=== PATIENT | female | born 1965 | race Caucasian/White ===

== ENCOUNTER 2018-06-01 15:52 | Observation (INO) ==
--- NOTE | 2018-06-01 16:04 | Emergency Department Note ---
Disposition Clinical Impression: Chest pain Disposition: Admitted As Inpatient Condition: Good Time of Disposition: 17:00 Abdominal Pain HPI - General Chief Complaint: ED Abdominal Pain Stated Complaint: abd pain, n/v Time Seen by Provider: 06/01/18 15:55 Source: patient Mode of arrival: ambulatory Limitations: no limitations Nursing Notes Reviewed: Yes Vital Signs Reviewed: Yes - History of Present Illness HPI Narrative: Patient complains of midsternal chest pain dizziness and nausea and vomiting that started this morning. She told the triage nurse that she was having belly pain it did not mention chest pain until I was interviewing her. She specifically denies belly pain and is complains of nausea with vomiting she denies diarrhea has not had a fever or chills symptoms have been present since this morning Pt Subjective Complaint: abdominal pain Onset (ago): day(s) (1) Consistency: constant Pain Severity: moderate Pain Scale: 7 Quality: aching Radiation: none Migration to: no migration Improves with: nothing Worsens with: nothing Associated symptoms: Reports: nausea, vomiting, other (Dizziness) - Related Data Home Medications Medication Instructions Recorded Confirmed Lisinopril [Zestril] 20 mg PO DAILY 12/30/17 06/01/18 Meloxicam 15 mg PO DAILY 12/30/17 06/01/18 Oxybutynin Chloride [Ditropan Xl] 10 mg PO DAILY 12/30/17 06/01/18 Previous Rx's Medication Instructions Recorded Lansoprazole [Prevacid] 30 mg PO DAILY #30 capsule. 08/23/16 Levothyroxine [Synthroid] 75 mcg PO DAILY #30 tablet 08/23/16 Allergies Allergy/AdvReac Type Severity Reaction Status Date / Time No Known Allergies Allergy Verified 08/10/15 01:01 All systems ED: reviewed and negative except as stated. Review of Systems: As Per HPI Constitutional: Denies: fever, chills, weakness, weight change Eyes: Denies: eye pain, eye discharge, vision change ENT ED: Denies: ear pain, throat pain, dental pain, hearing loss, epistaxis, congestion, dysphagia Cardiovascular: Reports: as per HPI, chest pain Respiratory: Denies: cough, dyspnea, wheezes, hemoptysis, stridor Gastrointestinal: Reports: as per HPI, nausea, vomiting Genitourinary: Denies: dysuria, frequency, hematuria, discharge Musculoskeletal: Denies: back pain, neck pain, arthralgia, myalgia Integumentary: Denies: rash, abrasion, lesions Neurological: Denies: headache, weakness, numbness, paresthesias, confusion, abnormal gait, vertigo Psychiatric: Denies: anxiety, depression, suicidal thoughts, homicidal thoughts, auditory hallucinations, visual hallucinations Endocrine: Denies: fatigue Hematological/Lymphatic: Denies: easy bleeding, easy bruising Allergic/Immunologic: Denies: facial swelling, urticaria Abdominal Pain PMH - Past Medical History Medical history: Reports: atrial fibrillation, fibromyalgia, GERD, hypertension, thyroid disease, other Female Surgical History: Reports: cholecystectomy, 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: bilateral tubal 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 Psychiatric history: Reports: depression - Social History Smoking status: Never smoker Alcohol use: Reports: none Drug use: Reports: none Physical Exam - General Limitations: no limitations General appearance: alert - Head Head exam: atraumatic, normocephalic, normal inspection - Eye Eye exam: Present: normal appearance, PERRL, EOMI - ENT ENT exam: normal exam, normal oropharynx, mucous membranes moist - Neck Neck exam: Present: normal inspection, full ROM, trachea midline - Chest Chest inspection: Present: normal inspection, symmetric chest wall rise - Respiratory Respiratory exam: Present: normal lung sounds bilaterally - Cardiovascular Cardiovascular exam: Present: regular rate, normal rhythm, normal heart sounds - Abdominal Exam Abdominal exam: Present: soft, Non-Tender, normal bowel sounds, other (Morbidly obese) - Extremities Exam Extremities exam: Present: normal inspection, full ROM. Absent: tenderness, pedal edema - Back Exam Back exam: Present: normal inspection - Neurological Exam Neurological exam: Present: alert, oriented X3 - Psychiatric Psychiatric exam: Present: normal affect, normal mood - Skin Skin exam: Present: warm, dry, intact Course Vital Signs Temperature 98 F 06/01/18 15:53 Pulse Rate 86 06/01/18 15:53 Respiratory Rate 18 06/01/18 15:53 Blood Pressure 157/93 06/01/18 15:53 O2 Sat by Pulse Oximetry 98 06/01/18 15:53 Temperature 98 F 06/01/18 15:53 Pulse Rate 79 06/01/18 19:22 Respiratory Rate 16 06/01/18 19:22 Blood Pressure 122/68 06/01/18 19:22 O2 Sat by Pulse Oximetry 98 06/01/18 19:22 Oxygen Delivery Oxygen Delivery Room Air Abdominal Pain - MDM Narrative Medical decision making narrative: I reviewed the patient's medication list Case was discussed with Dr. Enamorado who is graciously accepted admission - Lab Data Lab results reviewed: Yes I reviewed the patient's lab results. Result diagrams: 06/01/18 16:27 06/01/18 16:27 Lab Results 06/01/18 06/01/18 06/01/18 Range/Units 16:13 16:27 16:27 WBC 4.6 (4.3-11.1) K/mcL RBC 4.85 (3.82-4.97) M/mcL Hgb 15.1 (11.5-15.4) g/dL Hct 45.0 H (35.3-44.9) % MCV 92.8 (83.0-100.0) fL MCH 31.1 (28.0-33.3) pg MCHC 33.6 (31.6-35.5) g/dL RDW 13.3 (11.5-14.5) % Plt Count 172 (140-400) K/mcL MPV 10.7 (9.4-12.4) fL Immature Gran % 0.2 (0-4) % Seg Neutrophils % 48.8 % Lymphocytes % 39.9 % Monocytes % 7.4 % Eosinophils % 2.8 % Basophils % 0.9 % Neutrophils # 2.2 (1.6-8.9) K/mcL Lymphocytes # 1.8 (0.6-4.6) K/mcL Monocytes # 0.3 (0.0-1.3) K/mcL Eosinophils # 0.1 (0.0-0.6) K/mcL Basophils # 0.0 (0.0-0.2) K/mcL PT 12.3 H (9.4-12.1) Seconds INR 1.1 APTT 31.1 (26.0-36.0) Seconds Sodium (136-145) mEq/L Potassium (3.5-5.1) mEq/L Chloride (98-107) mEq/L Carbon Dioxide (23-29) mEq/L BUN (6-20) mg/dL Creatinine (0.60-1.20) mg/dL Est GFR ( Amer) (> 60) Est GFR (Non-Af Amer) (> 60) BUN/Creatinine Ratio (6-26) Glucose (70-105) mg/dL Calculated Osmolality (280-300) Calcium (8.6-10.3) mg/dL Total Bilirubin (0.3-1.0) mg/dL AST (13-39) Units/L ALT (7-52) Units/L Alkaline Phosphatase (34-104) Units/L Troponin I (< 0.04) ng/mL Serum Total Protein (6.4-8.9) g/dL Albumin (3.5-5.7) g/dL Globulin (2.4-3.5) g/dL Albumin/Globulin Ratio (1.1-2.2) Urine Color Yellow (Yellow) Urine Clarity Slightly Cloudy A (Clear) Urine pH 7.0 (5.0-8.0) pH Units Ur Specific [place] 1.025 (1.010-1.025) Urine Protein Negative (Neg-Trace) mg/dL Urine Glucose (UA) Normal (Normal) mg/dL Urine Ketones Negative (Negative) mg/dL Urine Blood Negative (Negative) Urine Nitrite Negative (Negative) Urine Bilirubin Negative (Negative) Urine Urobilinogen Normal (Normal) mg/dL Ur Leukocyte Esterase Negative (Negative) Urine Microscopic RBC 0-3 (0-3) per hpf Urine Microscopic WBC 3-5 H (0-3) per hpf Ur Squamous Epith Cells Many H (None-Few) per lpf Amorphous Sediment Few (Few) Urine Bacteria Many H (None-Few) per hpf Granular Casts Few H (None Seen) per lpf Ur Culture Indicated? NO (NO) 06/01/18 06/01/18 Range/Units 16:27 17:49 WBC (4.3-11.1) K/mcL RBC (3.82-4.97) M/mcL Hgb (11.5-15.4) g/dL Hct (35.3-44.9) % MCV (83.0-100.0) fL MCH (28.0-33.3) pg MCHC (31.6-35.5) g/dL RDW (11.5-14.5) % Plt Count (140-400) K/mcL MPV (9.4-12.4) fL Immature Gran % (0-4) % Seg Neutrophils % % Lymphocytes % % Monocytes % % Eosinophils % % Basophils % % Neutrophils # (1.6-8.9) K/mcL Lymphocytes # (0.6-4.6) K/mcL Monocytes # (0.0-1.3) K/mcL Eosinophils # (0.0-0.6) K/mcL Basophils # (0.0-0.2) K/mcL PT (9.4-12.1) Seconds INR APTT (26.0-36.0) Seconds Sodium 138 (136-145) mEq/L Potassium 4.1 (3.5-5.1) mEq/L Chloride 104 (98-107) mEq/L Carbon Dioxide 27 (23-29) mEq/L BUN 13 (6-20) mg/dL Creatinine 0.72 (0.60-1.20) mg/dL Est GFR ( Amer) > 60 (> 60) Est GFR (Non-Af Amer) > 60 (> 60) BUN/Creatinine Ratio 18 (6-26) Glucose 129 H (70-105) mg/dL Calculated Osmolality 288 (280-300) Calcium 9.2 (8.6-10.3) mg/dL Total Bilirubin 1.3 H (0.3-1.0) mg/dL AST 20 (13-39) Units/L ALT 23 (7-52) Units/L Alkaline Phosphatase 58 (34-104) Units/L Troponin I < 0.03 < 0.03 (< 0.04) ng/mL Serum Total Protein 7.0 (6.4-8.9) g/dL Albumin 3.9 (3.5-5.7) g/dL Globulin 3.1 (2.4-3.5) g/dL Albumin/Globulin Ratio 1.3 (1.1-2.2) Urine Color (Yellow) Urine Clarity (Clear) Urine pH (5.0-8.0) pH Units Ur Specific [place] (1.010-1.025) Urine Protein (Neg-Trace) mg/dL Urine Glucose (UA) (Normal) mg/dL Urine Ketones (Negative) mg/dL Urine Blood (Negative) Urine Nitrite (Negative) Urine Bilirubin (Negative) Urine Urobilinogen (Normal) mg/dL Ur Leukocyte Esterase (Negative) Urine Microscopic RBC (0-3) per hpf Urine Microscopic WBC (0-3) per hpf Ur Squamous Epith Cells (None-Few) per lpf Amorphous Sediment (Few) Urine Bacteria (None-Few) per hpf Granular Casts (None Seen) per lpf Ur Culture Indicated? (NO) - Radiology Data Radiology results reviewed: Yes I reviewed the patient's radiology results. - EKG Data EKG attestation: Yes I reviewed and interpreted this EKG. EKG results narrative: EKG shows a sinus rhythm with a solitary PVC. Rate is 80 bpm. IA interval 166 ms rastafarian 102 ms QT interval 396 QTC 407 ms R axis of -[address] elevation. Some anterolateral T changes.
[2018-06-01] MEDS ORDERED: Aspirin 81 MG TAB.CHEW PO STA (16:09)
[2018-06-01] MEDS ORDERED: Ondansetron 4 MG/2 ML VIAL IVP ONE (16:09)
[2018-06-01] MEDS ORDERED: Nitroglycerin 0.4 MG TAB.SUBL SL PRN ×2 (16:09→19:57)
[2018-06-01] MEDS ORDERED: 0.9 % Sodium Chloride 1,000 ML IVC SCH (16:15)
[2018-06-01 16:20] LABS: Bilirubin,Urine Negative (Negative); Blood,Urine Negative (Negative); Clarity,Urine Slightly Cloudy (Clear); Color,Urine Yellow (Yellow); Glucose,Urine (UA) Normal (Normal); Ketones,Urine Negative (Negative); Leukocyte Esterase,Urine Negative (Negative); Nitrite,Urine Negative (Negative); Protein,Urine Negative (Neg-Trace); Specific Gravity,Urine 1.025 (1.010-1.025); Urobilinogen,Urine Normal (Normal)
[2018-06-01] MEDS ORDERED: Nitroglycerin 0.4 MG TAB.SUBL SL ONE (16:21)
[2018-06-01] MEDS ORDERED: 0.9 % Sodium Chloride 1,000 ML ONE (16:21)
[2018-06-01 16:31] LABS: Basophils % 0.9 %; Eosinophils # 0.1 K/mcL (0.0-0.6); Eosinophils % 2.8 %; Hemoglobin 15.1 g/dL (11.5-15.4); Immature Granulocytes % 0.2 % (0-4); Lymphocytes # 1.8 K/mcL (0.6-4.6); Lymphocytes % 39.9 %; Mean Corpuscular HGB Conc 33.6 g/dL (31.6-35.5); Mean Corpuscular Hemoglobin 31.1 pg (28.0-33.3); Mean Corpuscular Volume 92.8 fL (83.0-100.0); Mean Platelet Volume 10.7 fL (9.4-12.4); Monocytes # 0.3 K/mcL (0.0-1.3); Monocytes % 7.4 %; Neutrophils # 2.2 K/mcL (1.6-8.9); Platelet Count 172 K/mcL (140-400); Red Blood Count 4.85 M/mcL (3.82-4.97); Red Cell Distribution Width 13.3 % (11.5-14.5); Segmented Neutrophils % 48.8 %
[2018-06-01 16:32] LABS: Amorphous Sediment,Urine Few (Few); Bacteria,Urine Many per hpf (None-Few); Granular Casts,Urine Few per lpf (None Seen); RBC,Urine 0-3 per hpf (0-3); Squamous Epithelial Cell,Urine Many per lpf (None-Few)
[2018-06-01 16:39] LABS: INR 1.1; Prothrombin Time 12.3 Seconds (9.4-12.1)
[2018-06-01 16:41] LABS: Activated Partial Thrombo Time 31.1 Seconds (26.0-36.0)
[2018-06-01 16:50] LABS: Alanine Aminotransferase 23 Units/L (7-52); Albumin 3.9 g/dL (3.5-5.7); Albumin/Globulin Ratio 1.3 (1.1-2.2); Alkaline Phosphatase 58 Units/L (34-104); Aspartate Amino Transferase 20 Units/L (13-39); BUN/Creatinine Ratio 18 (6-26); Bilirubin,Total 1.3 mg/dL (0.3-1.0); Blood Urea Nitrogen 13 mg/dL (6-20); Calcium 9.2 mg/dL (8.6-10.3); Carbon Dioxide 27 mEq/L (23-29); Chloride 104 mEq/L (98-107); Globulin 3.1 g/dL (2.4-3.5); Glucose 129 mg/dL (70-105); Osmolality,Calculated 288 (280-300); Potassium 4.1 mEq/L (3.5-5.1); Sodium 138 mEq/L (136-145); Troponin I < 0.03 ng/mL (< 0.04); eGFR For Non-African Americans > 60 (> 60)
[2018-06-01] MEDS ORDERED: Naloxone 0.4 MG/ML INJ IVP PRN (19:57)
[2018-06-01] MEDS: 0.9 % Sodium Chloride 1,000 ML IVC SCH (21:12)
[2018-06-01] MEDS: Acetaminophen 325 MG TABLET PO PRN (23:53)
[2018-06-02] MEDS: Ondansetron 4 MG/2 ML VIAL IVP PRN ×2 (01:25→09:54)
[2018-06-02] MEDS: 0.9 % Sodium Chloride 1,000 ML IVC SCH (05:32)
[2018-06-02 06:20] LABS: Basophils # 0.1 K/mcL (0.0-0.2); Eosinophils # 0.2 K/mcL (0.0-0.6); Eosinophils % 3.7 %; Hematocrit 41.2 % (35.3-44.9); Hemoglobin 13.7 g/dL (11.5-15.4); Immature Granulocytes % 0.2 % (0-4); Lymphocytes # 2.2 K/mcL (0.6-4.6); Lymphocytes % 45.1 %; Mean Corpuscular HGB Conc 33.3 g/dL (31.6-35.5); Mean Corpuscular Hemoglobin 30.9 pg (28.0-33.3); Mean Platelet Volume 11.4 fL (9.4-12.4); Monocytes # 0.5 K/mcL (0.0-1.3); Monocytes % 9.3 %; Platelet Count 168 K/mcL (140-400); Red Blood Count 4.43 M/mcL (3.82-4.97); Red Cell Distribution Width 13.5 % (11.5-14.5); Segmented Neutrophils % 40.7 %
[2018-06-02 06:40] LABS: Troponin I < 0.03 ng/mL (< 0.04)
[2018-06-02 06:43] LABS: BUN/Creatinine Ratio 21 (6-26); Blood Urea Nitrogen 14 mg/dL (6-20); Calcium 8.5 mg/dL (8.6-10.3); Carbon Dioxide 26 mEq/L (23-29); Chloride 103 mEq/L (98-107); Glucose 114 mg/dL (70-105); Osmolality,Calculated 279 (280-300); Potassium 3.5 mEq/L (3.5-5.1); Sodium 134 mEq/L (136-145); eGFR For Non-African Americans > 60 (> 60)
[2018-06-02 07:17] VITALS: BP 106/62
[2018-06-02] MEDS ORDERED: Lisinopril 20 MG TABLET PO SCH (09:00)
[2018-06-02] MEDS: Acetaminophen 325 MG TABLET PO PRN (10:03)
--- NOTE | 2018-06-02 12:00 | Internal Med History&Physical ---
Date of Encounter: 06/02/18 Time of Encounter: 11:30 Assessment and Plan (1) Chest pain Current visit: Yes Status: Acute Doubt myocardial ischemic origin from history and physical. Suspect chest wall origin. Repeat cardiac enzymes were ordered through emergency room. Qualifiers: Chest pain type: precordial pain Qualified Code(s): R07.2 - Precordial pain (2) Vomiting Current visit: Yes Status: Acute Now resolved. Qualifiers: Vomiting type: unspecified Vomiting Intractability: non-intractable Nausea presence: unspecified Qualified Code(s): R11.10 - Vomiting, unspecified (3) Hypertension Current visit: Yes Status: Chronic Continue lisinopril. Qualifiers: Hypertension type: essential hypertension Qualified Code(s): I10 - Essential (primary) hypertension Internal Medicine - H&P: HPI Chief complaint: Vomiting, chest discomfort Admitted From: Emergency Dept Plans for Post Hospital Care: Home History of present illness: Ms. Wilson is a 52 year old female who came to emergency room stating she awakened the morning of admission with a nonradiating burning/heavy sensation in her mid chest area. She had 3 episodes of vomiting at home without hematemesis. She had a burning sensation in her abdominal area and reports vertigo. She denies diarrhea fevers or chills or significant cough or dyspnea. When she did not improve after several hours she came to emergency room for evaluation. She was admitted to [facility] floor for ongoing care needs. She states her symptoms have resolved and she feels back to her baseline now and wishes to be discharged home. She denies URI symptoms other than having some left ear drainage onset 3 days ago. Past Med Surg Social Fam HX - Past Medical History Medical history: atrial fibrillation, fibromyalgia, GERD, hypertension, thyroid disease, other Additional medical history: TMJ. neuropathy Psychiatric history: depression - Past Surgical History Surgical History: cholecystectomy Additional surgical history: tubal ligation. exploratory lap - Social History Smoking Status: Never smoker Smokeless Tobacco Status: No Alcohol use: none Drug use: none Internal Medicine - H&P: Meds Lansoprazole [Prevacid] 30 mg PO DAILY #30 capsule. 08/23/16 [Rx] Levothyroxine [Synthroid] 75 mcg PO DAILY #30 tablet 08/23/16 [Rx] Lisinopril [Zestril] 20 mg PO DAILY 12/30/17 [History] Meloxicam 15 mg PO DAILY 12/30/17 [History] Oxybutynin Chloride [Ditropan Xl] 10 mg PO DAILY 12/30/17 [History] Allergy/AdvReac Type Severity Reaction Status Date / Time No Known Allergies Allergy Verified 08/10/15 01:01 All Systems PM: A 10-system review of systems was performed and is negative for pertinent findings except as documented above in the HPI. Review of systems: Gen.: She states her weight has increased approximately 25 pounds in the past year Cardiovascular: She has history of hypertension. She denies PA heart failure angina DVT or pulmonary embolus.. Echocardiogram 01/18/2015 showed LVEF 55%. There was mild LV diastolic dysfunction reported with E/A ratio 0.8. There was mild aortic regurgitation. She reports she has had an "arrhythmia" which she thinks was atrial fibrillation. She does not report taking OAC. The arrhythmia resolved without further intervention. She has predictable dyspnea on exertion. Respiratory: She is a lifelong nonsmoker and denies chronic lung disease. She r eports she was diagnosed with ISABEL approximately August 2014 by sleep study but did not return for CPAP titration. GI: She has had cholecystectomy. She has GERD. She denies disorders of her liver or exocrine pancreas. : She has history of kidney stones and overactive bladder. She denies other kidney disorders. Neurologic: She denies large distribution strokes or seizures. Endocrine: She has hypothyroidism. She denies diabetes or hyperlipidemia. Hematology/oncology: She denies blood disorders cancers or anemia Psychiatric: She was diagnosed with depression at her last PCP visit. She was prescribed antidepressant medication but states she discontinued it after the first dose because of unpleasant side effect. She denies other mental health diagnosis. [place] skeletal: She has diagnosis of DJD and fibromyalgia. She denies gout or other bone joint or muscle disorders. - Constitutional Vitals: Temp Pulse Resp BP Pulse Ox 98.1 F 81 16 106/62 92 06/02/18 07:13 06/02/18 07:13 06/02/18 07:13 06/02/18 07:13 06/02/18 07:13 Exam: Gen.: She is well-developed WBC female lying in bed who appears in no acute distress at present time HEENT: Head is atraumatic and normocephalic. Eyes: EOMI. There is no scleral icterus. Mouth: Mucosa is moist. Neck: Supple and nontender. There is no thyromegaly or adenopathy noted. Heart: Regular without murmurs gallops or ectopics Chest: She has slight tenderness in her mid sternal area to compression stating "that is the pain". Abdomen: She has a large abdomen. It is nontender to palpation. Extremities: There is no cyanosis edema or clubbing noted. Dorsalis pedis and posterior tibial pulses are trace to 1+ palpable bilaterally. Neurologic: Mental status: She is talkative and a good historian. Cranial nerves: Smile is symmetric. Forehead wrinkles bilaterally. Tongue protrudes midline. EOMI. Motor: There is no pronator drift. Cerebellar: Finger to nose is intact bilaterally. Skin: Warm and dry Internal Med - H&P Results - Labs CBC & Chem 7: 06/02/18 05:30 06/02/18 05:30 Labs: Short CBC 06/01/18 06/02/18 Range/Units 16:27 05:30 WBC 4.6 4.9 (4.3-11.1) K/mcL Hgb 15.1 13.7 (11.5-15.4) g/dL Hct 45.0 H 41.2 (35.3-44.9) % Plt Count 172 168 (140-400) K/mcL Neutrophils # 2.2 2.0 (1.6-8.9) K/mcL BMP 06/01/18 06/02/18 16:27 05:30 Sodium 138 134 L Potassium 4.1 3.5 Chloride 104 103 Carbon Dioxide 27 26 BUN 13 14 Creatinine 0.72 0.67 Glucose 129 H 114 H Calcium 9.2 8.5 L Cardiac Enzymes 06/01/18 06/01/18 06/01/18 Range/Units 16:27 17:49 22:00 Troponin I < 0.03 < 0.03 < 0.03 (< 0.04) ng/mL 06/02/18 Range/Units 05:30 Troponin I < 0.03 (< 0.04) ng/mL Liver Function 06/01/18 Range/Units 16:27 Total Bilirubin 1.3 H (0.3-1.0) mg/dL AST 20 (13-39) Units/L ALT 23 (7-52) Units/L Alkaline Phosphatase 58 (34-104) Units/L Albumin 3.9 (3.5-5.7) g/dL Urine 06/01/18 Range/Units 16:13 Urine Color Yellow (Yellow) Urine Clarity Slightly Cloudy A (Clear) Urine pH 7.0 (5.0-8.0) pH Units Ur Specific [place] 1.025 (1.010-1.025) Urine Protein Negative (Neg-Trace) mg/dL Urine Glucose (UA) Normal (Normal) mg/dL - Impressions ITS Impressions Chest X-Ray 06/01/18 16:07 IMPRESSION: Cardiomegaly. No radiographic evidence of acute pulmonary disease. Low lung volumes. D/ / Alden Avila / Alden Avila Interpreting Provider: Alden Avila
--- NOTE | 2018-06-02 12:13 | Discharge Summary ---
Orders not resulted at time of discharge: Pending orders 06/01/18 16:07 EKG [ECG 12 lead ECG] [ECG] Stat 06/02/18 06:00 ECG 12 lead ECG [ECG] AM 0600 06/02/18 10:00 Troponin I Q6H Date of Encounter: 06/02/18 Time of Encounter: 11:30 - Discharge Diagnosis (1) Chest pain Priority: Primary Status: Acute Qualifiers: Chest pain type: precordial pain Qualified Code(s): R07.2 - Precordial pain (2) Vomiting Priority: Secondary Status: Resolved Qualifiers: Vomiting type: unspecified Vomiting Intractability: non-intractable Nausea presence: unspecified Qualified Code(s): R11.10 - Vomiting, unspecified (3) Hypertension Priority: Secondary Status: Chronic Qualifiers: Hypertension type: essential hypertension Qualified Code(s): I10 - Essential (primary) hypertension Hospital course: Ms. Wilson is a 52 year old female who came to emergency room stating she awakened the morning of admission with a nonradiating burning/heavy sensation in her mid chest area. She had 3 episodes of vomiting at home without hematemesis. She had a burning sensation in her abdominal area and reports vertigo. She denies diarrhea fevers or chills or significant cough or dyspnea. When she did not improve after several hours she came to emergency room for evaluation. She was admitted to [facility] for ongoing care needs. Initial orders were written by the emergency room physician. I saw her on June 02 and performed a history physical and discharge. By the time I saw her she reported she was asymptomatic. She felt back to her baseline and wished to be discharged home which I felt was reasonable. Repeat cardiac enzymes show ed no evidence of myocardial damage. I suspect her chest pain was likely chest wall origin. She will follow with her PCP Felicia Lopez CNP within 1 week. - Time Spent with Patient Total time spent providing and/or coordinating discharge services: - Discharge Medications Home Medications: Lansoprazole [Prevacid] 30 mg PO DAILY #30 capsule. 08/23/16 [Rx] Levothyroxine [Synthroid] 75 mcg PO DAILY #30 tablet 08/23/16 [Rx] Lisinopril [Zestril] 20 mg PO DAILY 12/30/17 [History] Meloxicam 15 mg PO DAILY 12/30/17 [History] Oxybutynin Chloride [Ditropan Xl] 10 mg PO DAILY 12/30/17 [History] Allergies/Adverse Reactions: Allergy/AdvReac Type Severity Reaction Status Date / Time No Known Allergies Allergy Verified 08/10/15 01:01 Date of admission: 06/01/18 18:39 Primary care physician: Felicia Lopez - Constitutional Vitals: Temp Pulse Resp BP Pulse Ox 98.1 F 81 16 106/62 92 06/02/18 07:13 06/02/18 07:13 06/02/18 07:13 06/02/18 07:13 06/02/18 07:13 - Patient Status Disposition: Home, Self-Care Condition: Good - Discharge Instructions Follow Up With: Felicia Lopez, OUTREACH CLINICIAN [Primary Care Provider] - 1 week - Diet and Activity Activity: resume usual activities as tolerated Diet: advance to your usual diet
--- NOTE | 2018-06-04 15:11 | Electrocardiograph Report ---
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
--- NOTE | 2018-06-05 14:23 | Electrocardiograph Report ---
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
== END 2018-06-02 15:24 | disposition home or self-care (01) ==
LOC: INPPIK 15:52 → EMEROOPIK 15:52 → INPPIK 19:45
PROVIDERS: ADMIT Internal Medicine; ATTEND Internal Medicine

== ENCOUNTER 2020-04-20 22:44 | Inpatient (IN) ==
[2020-04-20] MEDS ORDERED: Ipratropium/Albuterol Neb 3 ML IH ONE (23:17)
[2020-04-20] MEDS ORDERED: Ondansetron 4 MG/2 ML VIAL IVP ONE (23:17)
[2020-04-20] MEDS ORDERED: 0.9 % Sodium Chloride 1,000 ML IVC ONE (23:17)
[2020-04-20 23:52] LABS: Basophils % 0.4 %; Hematocrit 42.1 % (35.3-44.9); Hemoglobin 14.1 g/dL (11.5-15.4); Lymphocytes % 39.4 %; Mean Corpuscular HGB Conc 33.5 g/dL (31.6-35.5); Mean Corpuscular Hemoglobin 31.1 pg (28.0-33.3); Mean Corpuscular Volume 92.7 fL (83.0-100.0); Mean Platelet Volume 10.8 fL (9.4-12.4); Monocytes # 0.3 K/mcL (0.0-1.3); Monocytes % 11.8 %; Neutrophils # 1.2 K/mcL (1.6-8.9); Platelet Count 133 K/mcL (140-400); Red Blood Count 4.54 M/mcL (3.82-4.97); Red Cell Distribution Width 13.3 % (11.5-14.5); Segmented Neutrophils % 48.4 %; White Blood Count 2.5 K/mcL (4.3-11.1)
[2020-04-21 00:39] LABS: ABG Base Excess 3 mEq/L (-2 to 3); ABG HCO3 28 mEq/L (21-27); ABG Oxygen Saturation 86 % (95-98); ABG PCO2 47 mmHg (35-45); ABG PH 7.39 pH Units (7.32-7.45); ABG PO2 52 mmHg (85-104); ABG TCO2 30 mEq/L (20-26)
[2020-04-21 00:50] LABS: BUN/Creatinine Ratio 11 (6-26); Blood Urea Nitrogen 8 mg/dL (6-20); Calcium 8.4 mg/dL (8.6-10.3); Carbon Dioxide 30 mEq/L (23-29); Chloride 99 mEq/L (98-107); Glucose 116 mg/dL (70-105); Osmolality,Calculated 283 (280-300); Potassium 3.6 mEq/L (3.5-5.1); Sodium 137 mEq/L (136-145); eGFR For African Americans > 60 (> 60); eGFR For Non-African Americans > 60 (> 60)
[2020-04-21 00:51] LABS: Troponin I < 0.03 ng/mL (< 0.04)
[2020-04-21] MEDS ORDERED: Azithromycin 500 MG in 0.9 % Sodium Chloride 250 ML IVPB ONE (01:31)
[2020-04-21] MEDS ORDERED: Dexamethasone 4 MG/ML VIAL IVP ONE (01:31)
[2020-04-21] MEDS ORDERED: Naloxone 0.4 MG/ML INJ IVP PRN (03:32)
[2020-04-21] MEDS ORDERED: Ondansetron 4 MG/2 ML VIAL IVP PRN (03:32)
[2020-04-21] MEDS ORDERED: 0.9 % Sodium Chloride 1,000 ML IVC SCH (03:32)
[2020-04-21 09:46] LABS: Alanine Aminotransferase 27 Units/L (7-52); Albumin 3.7 g/dL (3.5-5.7); Albumin/Globulin Ratio 1.1 (1.1-2.2); Alkaline Phosphatase 53 Units/L (34-104); Aspartate Amino Transferase 31 Units/L (13-39); BUN/Creatinine Ratio 9 (6-26); Bilirubin,Total 0.5 mg/dL (0.3-1.0); Blood Urea Nitrogen 7 mg/dL (6-20); Calcium 8.1 mg/dL (8.6-10.3); Carbon Dioxide 27 mEq/L (23-29); Chloride 100 mEq/L (98-107); Globulin 3.5 g/dL (2.4-3.5); Glucose 227 mg/dL (70-105); Osmolality,Calculated 289 (280-300); Potassium 3.7 mEq/L (3.5-5.1); Sodium 137 mEq/L (136-145); Total Protein 7.2 g/dL (6.4-8.9); eGFR For African Americans > 60 (> 60); eGFR For Non-African Americans > 60 (> 60)
[2020-04-21 09:50] LABS: Hematocrit 43.2 % (35.3-44.9); Hemoglobin 14.4 g/dL (11.5-15.4); Lymphocytes # 0.4 K/mcL (0.6-4.6); Lymphocytes % 23.7 %; Mean Corpuscular HGB Conc 33.3 g/dL (31.6-35.5); Mean Corpuscular Volume 92.9 fL (83.0-100.0); Monocytes % 2.6 %; Neutrophils # 1.2 K/mcL (1.6-8.9); Platelet Count 138 K/mcL (140-400); Red Blood Count 4.65 M/mcL (3.82-4.97); Red Cell Distribution Width 13.2 % (11.5-14.5); Segmented Neutrophils % 73.7 %; White Blood Count 1.6 K/mcL (4.3-11.1)
[2020-04-21] MEDS: Dexamethasone 4 MG/ML VIAL IVP SCH (10:07)
[2020-04-21] MEDS: lisinopriL 20 MG TABLET PO SCH (10:07)
[2020-04-21 10:45] LABS: Platelet Estimate Decreased (Normal)
[2020-04-21 12:42] LABS: Lactate Dehydrogenase 239 Units/L (140-271)
[2020-04-21 12:57] LABS: Ferritin 180 ng/mL (10-120)
[2020-04-21] MEDS: Acetaminophen 325 MG TABLET PO PRN (22:23)
[2020-04-22] MEDS: Dexamethasone 4 MG/ML VIAL IVP SCH (09:38)
[2020-04-22] MEDS: Azithromycin 500 MG in 0.9 % Sodium Chloride 250 ML IVPB SCH (09:39)
[2020-04-22] MEDS: lisinopriL 20 MG TABLET PO SCH (09:39)
[2020-04-22] MEDS: *HR* Enoxaparin 40 MG/0.4 ML SYRINGE SQ SCH (10:10)
[2020-04-22] MEDS: Acetaminophen 325 MG TABLET PO PRN (15:24)
[2020-04-23] MEDS: *HR* Enoxaparin 40 MG/0.4 ML SYRINGE SQ SCH (06:07)
[2020-04-23 07:53] LABS: Hemoglobin 13.8 g/dL (11.5-15.4); Mean Corpuscular HGB Conc 32.9 g/dL (31.6-35.5); Mean Corpuscular Hemoglobin 30.5 pg (28.0-33.3); Mean Corpuscular Volume 92.9 fL (83.0-100.0); Mean Platelet Volume 10.9 fL (9.4-12.4); Platelet Count 197 K/mcL (140-400); Red Blood Count 4.52 M/mcL (3.82-4.97); Red Cell Distribution Width 13.3 % (11.5-14.5); White Blood Count 6.7 K/mcL (4.3-11.1)
[2020-04-23 08:06] LABS: BUN/Creatinine Ratio 23 (6-26); Blood Urea Nitrogen 17 mg/dL (6-20); Calcium 8.7 mg/dL (8.6-10.3); Carbon Dioxide 31 mEq/L (23-29); Chloride 103 mEq/L (98-107); Glucose 126 mg/dL (70-105); Osmolality,Calculated 293 (280-300); Potassium 3.9 mEq/L (3.5-5.1); Sodium 140 mEq/L (136-145); eGFR For African Americans > 60 (> 60); eGFR For Non-African Americans > 60 (> 60)
[2020-04-23] MEDS: lisinopriL 20 MG TABLET PO SCH (08:06)
[2020-04-23] MEDS: Dexamethasone 4 MG/ML VIAL IVP SCH (08:06)
[2020-04-23] MEDS: Azithromycin 500 MG in 0.9 % Sodium Chloride 250 ML IVPB SCH (08:07)
[2020-04-23] MEDS ORDERED: Melatonin 3 MG TABLET PO SCH (21:00)
[2020-04-24] MEDS: *HR* Enoxaparin 40 MG/0.4 ML SYRINGE SQ SCH (05:21)
[2020-04-24 08:52] VITALS: BP 120/74
[2020-04-24] MEDS: lisinopriL 20 MG TABLET PO SCH (08:54)
[2020-04-24] MEDS: Dexamethasone 4 MG/ML VIAL IVP SCH (08:55)
[2020-04-24] MEDS: Azithromycin 500 MG in 0.9 % Sodium Chloride 250 ML IVPB SCH (08:56)
[2020-04-24] MEDS ORDERED: Azithromycin 250 MG TABLET PO SCH (09:14)
[2020-04-25] MEDS ORDERED: dexAMETHasone 4 MG TABLET PO SCH (09:00)
== END 2020-04-24 17:12 | disposition home or self-care (01) | DRG 137 ==
LOC: EMEROOPIK 22:44 → INPPIK 22:44
PROVIDERS: ADMIT Family Medicine; ATTEND Family Medicine